=== PATIENT | male | born 1940 | race Caucasian/White ===

== ENCOUNTER 2022-09-16 14:07 | Inpatient (IN) ==
[2022-09-16 14:34] LABS: ABS Monocytes 0.7 10^3/uL (0.0-1.1); ABS Neutrophils 3.6 10^3/uL (1.5-7.6); Eosinophil % 0.5 %; Hemoglobin 12.5 g/dL (13.2-16.3); Lymphocyte % 19.1 %; Mean Corpuscular Hemoglobin 29.9 pg (27-33); Mean Corpuscular Hgb Conc 33.9 g/dL (31-36); Mean Corpuscular Volume 88.3 fL (80-97); Mean Platelet Volume 8.7 fL (7.5-11.2); Platelet Count 175 10^3/uL (150-450); Red Blood Count 4.19 10^6/uL (4.06-5.63); Red Cell Distribution Width 13.9 % (12-17); White Blood Count 5.3 10^3/uL (3.6-10.2)
[2022-09-16 14:56] LABS: CO2 Carbon Dioxide 25 mmol/L (22-32); Calcium 9.3 mg/dL (8.6-10.3); Chloride 107 mmol/L (101-111); Sodium 139 mmol/L (135-145)
[2022-09-16 15:02] LABS: ALT 18 U/L (7-52); Albumin/Globulin Ratio 1.3 (1-3); Alkaline Phosphatase 63 U/L (35-149); Blood Urea Nitrogen 22 mg/dL (6-24); Glucose 193 mg/dL (70-100); eGFR CKD-EPI 66.6 (>60)
[2022-09-16 15:06] LABS: Anion Gap 7 mmol/L (2-16)
[2022-09-16 15:22] LABS: High Sens Troponin Baseline 6 pg/mL (<20)
[2022-09-16 15:29] LABS: INR 1.14 (0.88-1.18)
[2022-09-16 15:37] LABS: TSH Ultra Thyroid Stim Horm 1.51 mcIU/mL (0.34-5.60)
[2022-09-16 15:45] LABS: Free T4 0.77 ng/dL (0.61-1.12)
[2022-09-16 18:59] LABS: Magnesium 2.2 mg/dL (1.9-2.7)
[2022-09-17 04:18] LABS: ABS Lymphocytes 1.5 10^3/uL (1.0-4.8); ABS Monocytes 0.7 10^3/uL (0.0-1.1); ABS Neutrophils 2.9 10^3/uL (1.5-7.6); ABS Nucleated RBC 0.01 10^3/ul; Eosinophil % 0.8 %; Hematocrit 38.8 % (38-53); Hemoglobin 13.2 g/dL (13.2-16.3); Lymphocyte % 29.1 %; Mean Corpuscular Hemoglobin 29.5 pg (27-33); Mean Corpuscular Hgb Conc 33.9 g/dL (31-36); Mean Corpuscular Volume 86.9 fL (80-97); Mean Platelet Volume 8.9 fL (7.5-11.2); Nucleated Red Blood Cells % 0.1 /100 WBC (0.0-0.4); Platelet Count 185 10^3/uL (150-450); Red Blood Count 4.47 10^6/uL (4.06-5.63); White Blood Count 5.1 10^3/uL (3.6-10.2)
[2022-09-17 04:27] LABS: INR 1.13 (0.88-1.18)
[2022-09-17 04:32] LABS: Albumin 3.8 g/dL (3.2-5.2); Albumin/Globulin Ratio 1.4 (1-3); Calcium 9.5 mg/dL (8.6-10.3); Creatinine, Serum 1.05 mg/dL (0.67-1.17); Globulin 2.8 g/dL (2-4); Magnesium 2.1 mg/dL (1.9-2.7); Potassium 4.7 mmol/L (3.5-5.0); Total Bilirubin 0.5 mg/dL (0.2-1.0); Total Protein 6.6 g/dL (6.4-8.9); eGFR CKD-EPI 70.4 (>60)
[2022-09-17 16:20] VITALS: BP 143/90
[2022-09-20 21:45] LABS: Anaplasma phagocytophilum Negative (Negative); B. miyamotoi PCR, B Negative (Negative); Babesia divergens/MO-1 Negative (Negative); Babesia ducani Negative (Negative); Ehrlichia chaffeensis Negative (Negative); Ehrlichia ewingii/canis Negative (Negative); Ehrlichia muris eauclairensis Negative (Negative)
== END 2022-09-17 16:00 | disposition home or self-care (01) | DRG 310 ==
LOC: EDBD → ED 14:07 → EDHOLD 16:16 → ICU 17:36
PROVIDERS: ADMIT Internal Medicine Critical Care Medicine; ATTEND Internal Medicine Critical Care Medicine